=== PATIENT | female | born 1970 | race Caucasian/White ===

== ENCOUNTER 2017-07-11 14:18 | Emergency (ER) | payer BC, OTHER ==
[2017-07-11 14:32] VITALS: BP 116/77
--- NOTE | 2017-07-11 14:53 | UC ---
Throat Pain/Nasal Terrance HPI - HPI Summary HPI Summary: Pt presents with c/o nasal congestion, cough, sinus pressure and pain X 3 weeks. - History of Current Complaint Chief Complaint: UCRespiratory Stated Complaint: SINUSES,CHEST CONGESTION Time Seen by Provider: 07/11/17 14:39 Hx Obtained From: Patient Hx Last Menstrual Period: 07/03/17 ?: No Onset/Duration: Gradual Onset, Lasting Weeks - 3 Severity: Mild Cough: Productive - green Associated Signs & Symptoms: Positive: Sinus Discomfort, Other - nasal congestion - Epiglottits Risk Factors Epiglottis Risk Factors: Negative - Allergies/Home Medications Allergies/Adverse Reactions: Allergies Allergy/AdvReac Type Severity Reaction Status Date / Time Tetracycline Allergy Hives Verified 07/11/17 14:32 PMH/Surg Hx/FS Hx/Imm Hx Previously Healthy: Yes - Surgical History Surgical History: Yes Surgery Procedure, Year, and Place: [facility], gallbladder - Family History Known Family History: Positive: Cardiac Disease, Hypertension - Social History Occupation: Employed Full-time Lives: With Family Alcohol Use: Occasionally Substance Use Type: None Smoking Status (MU): Former Smoker Have You Smoked in the Last Year: No When Did the Patient Quit Smoking/Using Tobacco: 20 years ago Review of Systems Constitutional: Negative Skin: Negative Eyes: Negative ENT: Sinus Congestion, Sinus Pain/Tenderness, Other - PND Respiratory: Cough Cardiovascular: Negative Gastrointestinal: Negative Genitourinary: Negative Motor: Negative Neurovascular: Negative Musculoskeletal: Negative Neurological: Headache Psychological: Negative Is Patient Immunocompromised?: No All Other Systems Reviewed And Are Negative: Yes Physical Exam Triage Information Reviewed: Yes Appearance: Ill-Appearing Vital Signs: Initial Vital Signs Temp 98.0 F 07/11/17 14:23 Pulse 81 07/11/17 14:23 Resp 16 07/11/17 14:23 BP 116/77 07/11/17 14:23 Pulse Ox 100 07/11/17 14:23 Vital Signs Reviewed: Yes Eye Exam: Normal ENT Exam: Other ENT: Positive: Nasal congestion, TM bulging - bilateral, Other: - sinus tenderness Dental Exam: Normal Neck exam: Normal Respiratory Exam: Normal Cardiovascular Exam: Normal Musculoskeletal Exam: Normal Neurological Exam: Normal Psychological Exam: Normal Skin Exam: Normal Throat Pain/Nasal Course/Dx - Differential Dx/Diagnosis Differential Diagnosis/HQI/PQRI: Sinusitis, URI Provider Diagnoses: Sinusitis Discharge - Discharge Plan Condition: Stable Disposition: HOME Prescriptions: Amoxicillin PO (*) [Amoxicillin 875 MG (*)] 875 mg PO Q12H #20 tab Cetirizine-Pseudoephedrine [Zyrtec-D Allergy/Congesti] 1 tab PO DAILY #10 tab Fluconazole 100 MG TAB* [Diflucan 100 MG TAB*] 100 mg PO ONCE #2 tab Patient Education Materials: Sinusitis (ED) Referrals: Marisol Lambert MD [Primary Care Provider] - If Needed
== END 2017-07-11 15:09 | disposition home or self-care (01) ==
LOC: UCCORT 14:18
DX: J32.9 Chronic sinusitis, unspecified (principal); Z88.3 Allergy status to other anti-infective agents; Z87.891 Personal history of nicotine dependence
CPT/HCPCS: 99212; G0463

== ENCOUNTER 2017-12-03 11:52 | Emergency (ER) | payer BC, OTHER ==
[2017-12-03 13:02] VITALS: BP 116/88
--- NOTE | 2017-12-03 13:13 | UC ---
Throat Pain/Nasal Terrance HPI - HPI Summary HPI Summary: SINUS PAIN X 10 DAYS NASAL CONGESTION , PND , SORE THROAT + COUGH , NO FEVER, NO CHILLS - History of Current Complaint Chief Complaint: UCRespiratory Stated Complaint: FLU SYMPTOMS/SINUS Time Seen by Provider: 12/03/17 13:05 Hx Obtained From: Patient Hx Last Menstrual Period: 11/12/17 Onset/Duration: Gradual Onset, Lasting Days - 10, Still Present Severity: Moderate Pain Intensity: 0 Cough: Nonproductive Associated Signs & Symptoms: Positive: Nasal Discharge. Negative: Dysphagia, FB Sensation, Hoarseness, Sinus Discomfort, Fever, Vomiting, Rash - Allergies/Home Medications Allergies/Adverse Reactions: Allergies Allergy/AdvReac Type Severity Reaction Status Date / Time MS Tetracycline Allergy Hives Verified 12/03/17 12:55 [Tetracycline] Home Medications: Home Medications Pseudoephedrine HCL ER TAB* [Sudafed 12 Hour*] 120 mg PO BID PRN 12/03/17 [ History Confirmed 12/03/17] diPHENhydraMINE PO* [Benadryl PO 25 MG TAB*] 25 mg PO Q6H PRN 12/03/17 [History Confirmed 12/03/17] PMH/Surg Hx/FS Hx/Imm Hx - Additional Past Medical History Additional PMH: MS Endocrine History: Hypothyroidism - Surgical History Surgical History: Yes Surgery Procedure, Year, and Place: [facility], gallbladder - Family History Known Family History: Positive: Cardiac Disease, Hypertension - Social History Alcohol Use: None Substance Use Type: None Smoking Status (MU): Former Smoker Have You Smoked in the Last Year: No When Did the Patient Quit Smoking/Using Tobacco: 20 years ago Review of Systems Constitutional: Negative Skin: Negative Eyes: Negative ENT: Sore Throat, Ear Ache, Nasal Discharge, Sinus Congestion, Sinus Pain/ Tenderness Respiratory: Cough Cardiovascular: Negative Is Patient Immunocompromised?: No All Other Systems Reviewed And Are Negative: Yes Physical Exam Triage Information Reviewed: Yes Appearance: Well-Appearing, No Pain Distress, Well-Nourished Vital Signs: Initial Vital Signs Temp 98.5 F 12/03/17 12:57 Pulse 88 12/03/17 12:57 Resp 18 12/03/17 12:57 BP 116/88 12/03/17 12:57 Pulse Ox 100 12/03/17 12:57 Vital Signs Reviewed: Yes Eyes: Positive: Conjunctiva Clear ENT: Positive: Normal ENT inspection, Hearing grossly normal, Pharynx normal, Nasal congestion, Nasal drainage, TMs normal, Sinus tenderness Neck: Positive: Supple, Nontender, No Lymphadenopathy Respiratory: Positive: Chest non-tender, Lungs clear, Normal breath sounds, No respiratory distress Cardiovascular: Positive: RRR, No Murmur, Pulses Normal Skin Exam: Normal Throat Pain/Nasal Course/Dx - Differential Dx/Diagnosis Provider Diagnoses: SINUSITIS Discharge - Discharge Plan Condition: Stable Disposition: HOME Prescriptions: Amoxicillin/Clavulanate TAB* [Augmentin TAB 875*] 875 mg PO BID #20 tab Fluconazole [Diflucan 150 MG (NF)] 150 mg PO ONCE #1 tab Patient Education Materials: Sinusitis (ED) Referrals: Marisol Lambert MD [Primary Care Provider] - If Needed
== END 2017-12-03 13:25 | disposition home or self-care (01) ==
LOC: UCCORT 11:52
DX: J32.9 Chronic sinusitis, unspecified (principal); Z87.891 Personal history of nicotine dependence
CPT/HCPCS: 99212; G0463

== ENCOUNTER 2019-09-07 19:59 | Emergency (ER) | payer OTHER ==
--- NOTE | 2019-09-07 21:00 | UC ---
Lower Extremity/Ankle HPI - HPI Summary HPI Summary: 49 y/o female presents to the urgent care c/o left ankle and foot pain w/ moderate swelling on the lateral side of the left foot s/p stepping off the second step and twisting her ankle and foot about 1865pm today. Pt was wearing high heels and she felt a crack sound when injury happened. Pt w/ PMHX of MS and denies any previous injury to that foot or ankle. Pt is unable to bear any weight due to pain. Pain is sharp 9/10 w/ movement or standing and 6/10 at rest and localized on the lateral side of her left foot. Pt feels mild numbness around area and decrease ROM of the 4th and 5th toe. Pt took Advil PO 600mg about 1 hr ago and applied ice. Pt denies fever, calf pain, SOB, chest pain, abdominal pain, N/V/D. - History of Current Complaint Stated Complaint: LEFT ANKLE INJURY Time Seen by Provider: 09/07/19 20:59 Hx Obtained From: Patient Hx Last Menstrual Period: 11/05/17 ?: No - Pt declined pregnacy test Onset/Duration: Sudden Onset, Lasting Hours - 2 hrs ago Severity Initially: Severe Severity Currently: Moderate Pain Intensity: 9 - movement and 6/10 at rest Pain Scale Used: 0-10 Numeric Aggravating Factor(s): Standing, Ambulation Alleviating Factor(s): Rest, Elevation, Ice, OTC Meds Able to Bear Weight: No - Risk Factors Gout Risk Factors: Negative DVT Risk Factors: Negative Septic Arthritis Risk Factor: Negative - Allergies/Home Medications Allergies/Adverse Reactions: Allergies Allergy/AdvReac Type Severity Reaction Status Date / Time tetracycline Allergy Hives Verified 09/07/19 21:02 PMH/Surg Hx/FS Hx/Imm Hx Previously Healthy: Yes Other Neurological History: Multiple sclerosis - Surgical History Surgical History: Yes Surgery Procedure, Year, and Place: [facility], gallbladder - Family History Known Family History: Positive: Cardiac Disease, Hypertension, Diabetes - Social History Occupation: Employed Full-time Lives: With Family Alcohol Use: None Substance Use Type: None Smoking Status (MU): Former Smoker Have You Smoked in the Last Year: No When Did the Patient Quit Smoking/Using Tobacco: 20 years ago Review of Systems All Other Systems Reviewed And Are Negative: Yes Constitutional: Positive: Negative Skin: Positive: Negative Eyes: Positive: Negative ENT: Positive: Negative Respiratory: Positive: Negative Cardiovascular: Positive: Negative Gastrointestinal: Positive: Negative Genitourinary: Positive: Negative Motor: Positive: Negative Neurovascular: Positive: Negative Musculoskeletal: Positive: Decreased ROM - left ankle and foot, Other: - left ankle and foot pain w/ swelling on the lateral side of foot s/p injury Physical Exam - Summary Physical Exam Summary: Vital Signs Reviewed: Yes General : well developed, well nourished female w/o any apparent distress Eyes: Positive: Conjunctiva Clear - PERRLA, EOMI ENT: Positive: Normal ENT inspection, Hearing grossly normal, Pharynx normal, TMs normal Neck: Positive: Supple, Nontender, No Lymphadenopathy Respiratory: Positive: Chest non-tender, Lungs clear, Normal breath sounds, No respiratory distress Cardiovascular: Positive: RRR, No Murmur, Pulses Normal Abdomen Description: Positive: Nontender, No Organomegaly, Soft. Negative: CVA Tenderness (R), CVA Tenderness (L) Bowel Sounds: Positive: Present Musculoskeletal: Positive: Strength Intact, ROM Intact, No Edema, LF Ankle/Foot /Toes: Pt is unable to bear weight. No surface trauma, ecchymosis, erythema, lesions, ulcers or break in skin integrity. Teres is moderated swelling in the anterior and laterals side of the left foot when compares w/ the Rt foot . No bony step-off, No tenderness to palpation over toes, positive point tenderness over the dorsal side of mid foot and base of ankle and lateral base of the 4th and 5th metatarsal and sole at the same level, no tenderness of hindfoot, Decrease plantar/dorsiflexion, inversion/eversion due to pain. Distal motor and neurovascular status are intact. NoTenderness to palpation over the medial or lateral malleolus , no swelling observed. Talar tilt test is negative for ligament laxity to valgus or varus stress. Negative anterior drawer. Neurological Exam: Normal Psychological Exam: Normal Skin Exam: Normal Triage Information Reviewed: Yes Lower Extremity Course/Dx - Course Course Of Treatment: 49 y/o female presents to the urgent care c/o left ankle and foot pain w/ moderate swelling on the lateral side of the left foot s/p stepping off the second step and twisting her ankle and foot about 1865pm today. Pt was wearing high heels and she felt a crack sound when injury happened. Pt w/ PMHX of MS and denies any previous injury to that foot or ankle. Pt is unable to bear any weight due to pain. Pain is sharp 9/10 w/ movement or standing and 6/10 at rest and localized on the lateral side of her left foot. Pt feels mild numbness around area and decrease ROM of the 4th and 5th toe. Pt took Advil PO 600mg about 1 hr ago and applied ice. Pt denies fever, calf pain, SOB, chest pain, abdominal pain, N/V/D. LF ankle X-ray ordered, Impression: positive displaced fracture over the talus as per Dr Mccartney. I discussed Pt's symptoms w/ Dr Mccartney, who recommended Stirrup splint and posterior splint and f/u w/ Orthopedic Dr. Lind tomorrow. Pt immobilized with Ortho glass stirrup and posterior splint by DR Mccartney and my assistance. There was no neurovascular compromise after splint application; the splint was in good alignment and the pt had good sensation and capillary refill at the time of discharge. Pt given crutches to avoid weight bearing, Rx Ibuprofen PO to decrease swelling and pain. Pt advised RICE, take Ibuprofen PO for pain and to f/u with Orthopedic DR Lind or her Orthopedic tomorrow or as soon as possible for further treatment on her foot fracture. Pt understood and agreed and left the clinic ambulating w/ the help of crutches. - Differential Dx/Diagnosis Differential Diagnosis/HQI/PQRI: Arthritis, Bursitis, Contusion, Dislocation, Fracture (Closed), Gout, Sprain, Strain, Tendonitis Provider Diagnosis: Injury of left foot, Closed left ankle fracture, Displaced avulsion fracture of left talus - Physician Notifications Discussed Patient Care With: Shoaib Mccartney - DR Mccartney agreed w/ Pt's plan of care Discharge ED - Sign-Out/Discharge Documenting (check all that apply): Patient Departure - D/C home All imaging exams completed and their final reports reviewed: No - Discharge Plan Condition: Stable Disposition: HOME Prescriptions: Ibuprofen TAB* [Motrin TAB* 800 MG] 800 mg PO Q6H PRN #30 tab PRN Reason: severe pain Patient Education Materials: Ankle Fracture (ED) Referrals: Jessica Jeffrey NP [Primary Care Provider] - 1 Day Vicente Lind MD [Medical Doctor] - 1 Day Additional Instructions: 1-Please take medications as directed to alleviate pain and swelling. 2-Please apply ice, keep your ankle immobilized with the splint. Avoid weight bearing using the crutches. Elevate your ankle 3- Please f/u with Orthopedic DR Lind or your Orthopedic in 1 day for further evaluation and treatment on your ankle fracture. 4- Final radiology report will be done tomorrow and you will be notified of any other abnormality. - Billing Disposition and Condition Condition: STABLE Disposition: Home
[2019-09-07 21:08] VITALS: BP 128/87
--- NOTE | 2019-09-08 08:37 | UC ---
- Progress Note Progress Note: xray report left foot: IMPRESSION: DISPLACED AVULSION FRACTURE FRAGMENTS ARISING FROM THE DORSAL TALUS AND LATERAL CUBOID BONES.\ xray repot left ankle: IMPRESSION: 1. SOFT TISSUE SWELLING. 2. SMALL AVULSION FRACTURE FRAGMENTS ARISING FROM THE DORSAL TALUS AND LATERAL CALCANEUS OR CUBOID. Course/Dx - Diagnoses Provider Diagnoses: Injury of left foot, Closed left ankle fracture Discharge ED - Sign-Out/Discharge Documenting (check all that apply): Patient Departure All imaging exams completed and their final reports reviewed: Yes - Discharge Plan Condition: Stable Disposition: HOME Prescriptions: Ibuprofen TAB* [Motrin TAB* 800 MG] 800 mg PO Q6H PRN #30 tab PRN Reason: severe pain Patient Education Materials: Ankle Fracture (ED) Referrals: Vicente Lind MD [Medical Doctor] - 1 Day Jessica Jeffrey NP [Primary Care Provider] - 1 Day Additional Instructions: 1-Please take medications as directed to alleviate pain and swelling. 2-Please apply ice, keep your ankle immobilized with the splint. Avoid weight bearing using the crutches. Elevate your ankle 3- Please f/u with Orthopedic DR Lind or your Orthopedic in 1 day for further evaluation and treatment on your ankle fracture. 4- Final radiology report will be done tomorrow and you will be notified of any other abnormality. - Billing Disposition and Condition Condition: STABLE Disposition: Home
== END 2019-09-07 22:45 | disposition home or self-care (01) ==
LOC: UCCORT 19:59
DX: S99.922A Unspecified injury of left foot, initial encounter (principal); S92.152A Displaced avulsion fracture (chip fracture) of left talus, initial encounter for closed fracture; S92.212A Displaced fracture of cuboid bone of left foot, initial encounter for closed fracture; X50.9XXA Other and unspecified overexertion or strenuous movements or postures, initial encounter; Y92.9 Unspecified place or not applicable; G35 Multiple sclerosis; Z88.1 Allergy status to other antibiotic agents; Z87.891 Personal history of nicotine dependence
CPT/HCPCS: 99212; G0463